=== PATIENT | male | born 1940 | race Caucasian/White ===

== ENCOUNTER 2022-08-28 16:32 | Emergency (ER) | payer MEDICARE ==
[~2022-08-28] VITALS: Ht 175.3 cm; Wt 72.6 kg
--- OUTSIDE RECORDS SUMMARY | 2022-08-28 16:36 | XMS ---
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 Danya has no Care Guidelines for this patient. Miguel VISIT COUNT (12 MO.) 1 [facility] [place] TOTAL 1 NOTE: Visits indicate total known visits. ED/C VISIT TRACKING (12 MO.) 08/28/2022 16:33 [facility] [place] TYPE: Emergency COMPLAINT: - NOSE BLEED INPATIENT VISIT TRACKING (12 MO.) No inpatient visits to display in this time frame [id number]
[2022-08-28] MEDS ORDERED: LORAZEPAM0.5 MG PO (17:02)
[2022-08-28] MEDS ORDERED: CITALOPRAM HBR20 MG PO (17:02)
[2022-08-28] MEDS ORDERED: LOSARTAN POTASS25 MG PO (17:02)
[2022-08-28] MEDS ORDERED: TAMSULOSIN HCL0.4 MG PO (17:02)
[2022-08-28] MEDS ORDERED: OMEPRAZOLE40 MG PO (17:03)
[2022-08-28] MEDS ORDERED: DIGOXIN125 MCG PO (17:03)
[2022-08-28] MEDS ORDERED: OXYBUTYNIN CHLO10 MG PO (17:03)
[2022-08-28] MEDS ORDERED: METOPROLOL SUCC25 MG PO (17:04)
[2022-08-28] MEDS ORDERED: ADULT LOW DOSE81 MG PO (17:04)
[2022-08-28] MEDS ORDERED: CEPHALEXIN500 M1 PO (21:08)
[2022-08-28] MEDS ORDERED: HYDROCODON-ACE1 EA10 PO (21:08)
[2022-08-28 21:32] VITALS: BP 155/89
== END 2022-08-28 21:32 | disposition home or self-care (01) ==
LOC: ED 16:32
DX: R04.0 Epistaxis (principal); I10 Essential (primary) hypertension; K21.9 Gastro-esophageal reflux disease without esophagitis; Z88.2 Allergy status to sulfonamides; Z88.5 Allergy status to narcotic agent; Z79.899 Other long term (current) drug therapy
CPT/HCPCS: 36415; 80053; 80162; 85025; 85610; 85730; A9270; J1170; J2405

== ENCOUNTER 2023-04-07 16:30 | Emergency (ER) | payer MEDICARE, OTHER ==
[~2023-04-07] VITALS: Ht 175.3 cm; Wt 72.6 kg
[~2023-04-07 16:30] MED LIST: ADULT LOW DOSE81 MG PO; CEPHALEXIN500 M1 PO; CITALOPRAM HBR20 MG PO; DIGOXIN125 MCG PO; HYDROCODON-ACE1 EA10 PO; LORAZEPAM0.5 MG PO; LOSARTAN POTASS25 MG PO; METOPROLOL SUCC25 MG PO; OMEPRAZOLE40 MG PO; OXYBUTYNIN CHLO10 MG PO; TAMSULOSIN HCL0.4 MG PO
[2023-04-07 16:53] LABS: BASOPHILS 1.9 % (0-2); EOSINOPHILS 1.7 % (0-6); HEMATOCRIT 42.2 % (35.0-50.0); HEMOGLOBIN 13.9 g/dL (12.0-18.0); LYMPHOCYTES 14.9 % (24-44); MCH 31.3 (27-36); MONOCYTES 5.1 % (0-12); NEUTROPHILS 76.4 % (39-80); PLATELET COUNT 203 K/uL (140-440); RBC 4.44 M/ul (4.3-5.7)
[2023-04-07 17:07] LABS: ALBUMIN 3.4 g/dL (3.4-5.0); ALBUMIN/GLOBULIN RATIO 1.06 (1.1-2.4); ANION GAP 12.3 (7-21); BILIRUBIN, TOTAL 0.3 ng/dL (0.2-1.0); BUN/CREATININE RATIO 17.16 (6.0-28.6); CALCIUM 8.7 mg/dL (8.5-10.1); CREATININE, SERUM 1.34 mg/dL (0.70-1.30); POTASSIUM 4.3 mmol/L (3.5-5.1); PROTEIN, TOTAL 6.6 g/dL (6.4-8.2)
[2023-04-07 17:52] LABS: BILIRUBIN, URINE NEGATIVE (negative); BLOOD/HGB, URINE LARGE (Negative); KETONE, URINE TRACE (Negative); LEUK ESTERASE, URINE NEGATIVE (negative); NITRITE, URINE NEGATIVE (negative); PH, URINE 6.5 (5-7)
[2023-04-07 17:59] LABS: BACTERIA, URINE NONE SEEN /hpf (negative); CRYSTALS, URINE NONE SEEN (0-1+); EPITHELIAL CELLS, URINE SQUAMOUS 1+ /lpf (0-1+); RED BLOOD CELLS, URINE >50 /hpf (0-5)
[2023-04-07 18:00] LABS: CASTS, URINE NONE SEEN \\lpf; COLLECTION TYPE, URINE CLEAN CATCH; REFLEX CULTURE, URINE No (No)
[2023-04-07] MEDS ORDERED: ONDANSETRON ODT8 MG PO (18:26)
[2023-04-07] MEDS ORDERED: DILAUDID2 MG PO (18:26)
[2023-04-07 18:51] VITALS: BP 179/97
== END 2023-04-07 18:56 | disposition home or self-care (01) ==
LOC: ED 16:30
PROVIDERS: Emergency Medicine
DX: N13.2 Hydronephrosis with renal and ureteral calculous obstruction (principal); I10 Essential (primary) hypertension; K21.9 Gastro-esophageal reflux disease without esophagitis; Z88.2 Allergy status to sulfonamides; Z88.5 Allergy status to narcotic agent; Z79.899 Other long term (current) drug therapy; Z79.82 Long term (current) use of aspirin
CPT/HCPCS: 36415; 74176; 80053; 81001; 85025; 96374; 96375; 99284-25; A9270; J1170; J1885; J2405

== ENCOUNTER 2023-07-29 17:55 | Emergency (ER) | payer MEDICARE, OTHER ==
[~2023-07-29] VITALS: Ht 175.3 cm; Wt 68.0 kg
[~2023-07-29 17:55] MED LIST changes: +DILAUDID2 MG PO; +ONDANSETRON ODT8 MG PO
--- OUTSIDE RECORDS SUMMARY | 2023-07-29 17:57 | XMS ---
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 CARE PROVIDERS There are no care providers on record at this time. Danya has no Care Guidelines for this patient. Miguel VISIT COUNT (12 MO.) 4 [facility] [place] TOTAL 4 NOTE: Visits indicate total known visits. 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 - Other longterm (current) drug therapy - Unspecified abdominal pain 09/02/2022 15:35 [facility] [place] TYPE: Emergency COMPLAINT: - DIZZINESS 08/28/2022 16:33 [facility] [place] TYPE: Emergency COMPLAINT: - NOSE BLEED DIAGNOSES: - Allergy status to narcotic agent - Allergy status to sulfonamides - Epistaxis - Essential (primary) hypertension - Gastro-esophageal reflux disease without esophagitis - Other ocean 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
[2023-07-29] MEDS ORDERED: ondansetron HCL 4 MG/2 ML VIAL IV ONE (20:15)
[2023-07-29] MEDS ORDERED: SODIUM CHLORIDE 0.9% 500 ML IV PRN (20:15)
[2023-07-29 20:32] LABS: BASOPHILS 0.3 % (0-2); HEMATOCRIT 43.6 % (35.0-50.0); HEMOGLOBIN 14.7 g/dL (12.0-18.0); LYMPHOCYTES 9.5 % (24-44); MCH 31.6 (27-36); MCHC 33.6 g/dl (30-36); MCV 93.9 fl (81-99); MONOCYTES 5.8 % (0-12); NEUTROPHILS 83.4 % (39-80); PLATELET COUNT 195 K/uL (140-440); RBC 4.65 M/ul (4.3-5.7); RDW 14.8 (10.5-15.0)
[2023-07-29 20:45] LABS: ALBUMIN 4.1 g/dL (3.4-5.0); ALBUMIN/GLOBULIN RATIO 1.28 (1.1-2.4); ANION GAP 13.1 (7-21); BILIRUBIN, TOTAL 0.5 ng/dL (0.2-1.0); BUN/CREATININE RATIO 23.63 (6.0-28.6); CALCIUM 9.3 mg/dL (8.5-10.1); CREATININE, SERUM 1.1 mg/dL (0.70-1.30); POTASSIUM 4.1 mmol/L (3.5-5.1); PROTEIN, TOTAL 7.3 g/dL (6.4-8.2)
[2023-07-29 21:28] LABS: BILIRUBIN, URINE NEGATIVE (negative); BLOOD/HGB, URINE TRACE-I (Negative); KETONE, URINE TRACE (Negative); LEUK ESTERASE, URINE NEGATIVE (negative); NITRITE, URINE NEGATIVE (negative); PH, URINE 6.5 (5-7)
[2023-07-29] MEDS ORDERED: SOD PHOSPHATE/SOD BIPHOSPHATE 132 ML BTL PR ONE (21:30)
[2023-07-29 21:34] LABS: EPITHELIAL CELLS, URINE SQUAMOUS 1+ /lpf (0-1+)
[2023-07-29 21:35] LABS: BACTERIA, URINE RARE /hpf (negative); CASTS, URINE NONE SEEN \\lpf; CRYSTALS, URINE NONE SEEN (0-1+); REFLEX CULTURE, URINE No (No)
[2023-07-29] MEDS ORDERED: CONSTULOSE10 GM/15 M PO (21:43)
[2023-07-29] MEDS ORDERED: MAGNESIUM CITRATE 300 ML BTL PO ONE (21:45)
[2023-07-29 23:24] VITALS: BP 158/68
== END 2023-07-29 23:26 | disposition home or self-care (01) ==
LOC: ED 17:55
PROVIDERS: Family Medicine
DX: K59.00 Constipation, unspecified (principal); I10 Essential (primary) hypertension; F41.9 Anxiety disorder, unspecified; K21.9 Gastro-esophageal reflux disease without esophagitis; Z88.5 Allergy status to narcotic agent; Z88.2 Allergy status to sulfonamides; Z79.899 Other long term (current) drug therapy; Z79.82 Long term (current) use of aspirin
CPT/HCPCS: 36415; 74177; 80053; 81001; 85025; 96374; 99283-25; J7040; Q9967

== ENCOUNTER 2024-04-28 09:47 | Emergency (ER) | payer MEDICARE, OTHER ==
[~2024-04-28] VITALS: Ht 175.3 cm; Wt 69.4 kg
[~2024-04-28 09:47] MED LIST changes: +CONSTULOSE10 GM/15 M PO
[2024-04-28 10:08] LABS: BASOPHILS 1.1 % (0-2); EOSINOPHILS 1.4 % (0-6); HEMATOCRIT 47.1 % (35.0-50.0); HEMOGLOBIN 15.5 g/dL (12.0-18.0); LYMPHOCYTES 29.4 % (24-44); MCH 31.6 (27-36); MCV 95.7 fl (81-99); MONOCYTES 7.6 % (0-12); NEUTROPHILS 60.5 % (39-80); PLATELET COUNT 228 K/uL (140-440); RBC 4.92 M/ul (4.3-5.7); RDW 15.1 (10.5-15.0)
[2024-04-28] MEDS ORDERED: ondansetron HCL 4 MG/2 ML VIAL ONE (10:09)
[2024-04-28 10:21] LABS: ALBUMIN 3.6 g/dL (3.4-5.0); ALBUMIN/GLOBULIN RATIO 1.24 (1.1-2.4); ALCOHOL, MEDICAL <3 ng/dL (<3); ALKALINE PHOSPHATASE 72 U/L (46-116); ALT (SGPT) 16 U/L (14-59); ANION GAP 13.7 (7-21); AST (SGOT) 14 U/L (15-37); BILIRUBIN, TOTAL 0.7 ng/dL (0.2-1.0); CALCIUM 9.4 mg/dL (8.5-10.1); CARBON DIOXIDE 27 mmol/L (21-32); CHLORIDE 108 mmol/L (98-107); CREATININE, SERUM 1.24 mg/dL (0.70-1.30); GLOMERULAR FILTRATION RATE,EST 57 mL/min (>60); POTASSIUM 3.7 mmol/L (3.5-5.1); PROTEIN, TOTAL 6.5 g/dL (6.4-8.2); UREA NITROGEN 16 mg/dL (7-18)
[2024-04-28] MEDS ORDERED: ondansetron HCL 4 MG/2 ML VIAL IV ONE (10:30)
[2024-04-28 10:44] LABS: CORONAVIRUS COVID-19 AG NEGATIVE (NEGATIVE); INFLUENZA A AG NEGATIVE (NEGATIVE); INFLUENZA B AG NEGATIVE (NEGATIVE)
[2024-04-28 12:23] LABS: BILIRUBIN, URINE POSITIVE (negative); BLOOD/HGB, URINE TRACE-I (Negative); KETONE, URINE TRACE (Negative); LEUK ESTERASE, URINE NEGATIVE (negative); NITRITE, URINE NEGATIVE (negative); PH, URINE 5.5 (5-7)
[2024-04-28 12:39] LABS: CRYSTALS, URINE CALCIUM OXALATE 3+ (0-1+); EPITHELIAL CELLS, URINE SQUAMOUS 1+ /lpf (0-1+)
[2024-04-28 12:40] LABS: BACTERIA, URINE 1+ /hpf (negative); CASTS, URINE NONE SEEN \\lpf; COLLECTION TYPE, URINE CLEAN CATCH; REFLEX CULTURE, URINE No (No)
[2024-04-28 12:57] LABS: AMPHETAMINES, URINE NEGATIVE (NEGATIVE); BARBITURATES, URINE NEGATIVE (NEGATIVE); BENZODIAZEPINE, URINE NEGATIVE (NEGATIVE); BUPRENORPHINE, URINE NEGATIVE (NEGATIVE); CANNABINOID, URINE POSITIVE (NEGATIVE); COCAINE, URINE NEGATIVE (NEGATIVE); ECSTASY, URINE NEGATIVE (NEGATIVE); FENTANYL, URINE NEGATIVE (NEGATIVE); METHADONE, URINE NEGATIVE (NEGATIVE); OPIATES, URINE NEGATIVE (NEGATIVE); OXYCODONE, URINE NEGATIVE (NEGATIVE); PHENCYCLIDINE, URINE NEGATIVE (NEGATIVE)
[2024-04-28 13:56] VITALS: BP 129/80
--- NOTE | 2024-04-30 17:07 | EKG ---
[facility] [address] [place], [place] [address] Signed Sinus rhythm with 1st degree AV block Left axis deviation Septal infarct , age undetermined Abnormal ECG No previous ECGs available Confirmed by Kin Martell DO ([id number]) on 04/30/2024 5:06:45 PM Electronically Signed By: KIN MARTELL DO 04/30/24 1707 PATIENT NAME: DUSTIN PAYTON Haroon Electrocardiogram DATE OF : 36 PHYSICIAN: KIN MARTELL DO REPORT #: [id number] REPORT IS CONFIDENTIAL AND NOT TO BE RELEASED WITHOUT AUTHORIZATION
== END 2024-04-28 13:55 | disposition home or self-care (01) ==
LOC: ED 09:47
PROVIDERS: Internal Medicine
DX: R53.1 Weakness (principal); I10 Essential (primary) hypertension; K21.9 Gastro-esophageal reflux disease without esophagitis; Z88.5 Allergy status to narcotic agent; Z88.2 Allergy status to sulfonamides; Z79.82 Long term (current) use of aspirin; Z79.899 Other long term (current) drug therapy
CPT/HCPCS: 36415; 80053; 80307; 81001; 83605; 84484; 85025; 85651; 86140; 93005; 93010; 96374; 99285-25; G0480; J2405